=== PATIENT | female | born 1980 | race Native Hawaiian/Other Pacific Islander ===

== ENCOUNTER 2020-03-14 09:25 | Outpatient (CLI) | payer BC ==
[~2020-03-14 09:25] MED LIST: CELEXA20 MG OR; CELEXA40 MG PO; HYDR25TA60 PO; PENI500T14 PO
== END 2020-03-14 21:46 | disposition home or self-care (01) ==
LOC: LABW 09:25
DX: K21.9 Gastro-esophageal reflux disease without esophagitis (principal); F41.1 Generalized anxiety disorder; F32.9 Major depressive disorder, single episode, unspecified; K58.0 Irritable bowel syndrome with diarrhea; M54.5 Low back pain; M25.562 Pain in left knee; M25.561 Pain in right knee; R45.4 Irritability and anger; R10.84 Generalized abdominal pain; E03.9 Hypothyroidism, unspecified; E66.9 Obesity, unspecified
CPT/HCPCS: 81025

== ENCOUNTER 2020-09-04 08:12 | Outpatient (CLI) | payer BC | END 2020-09-04 21:37 | disposition home or self-care (01) | LOC: CT 08:12 | PROVIDERS: ATTEND Physician Assistant | DX: R10.2 Pelvic and perineal pain (principal); M54.9 Dorsalgia, unspecified; E66.9 Obesity, unspecified | CPT/HCPCS: 36415; 82565; 84520; Q9963 ==